=== PATIENT | female | born 1930 | race Caucasian/White ===

== ENCOUNTER 2017-06-15 13:34 | Inpatient (IN) | payer MEDICARE, BC ==
[2017-06-15] MEDS ORDERED: 0.9 % SODIUM CHLORIDE 1000ML 1,000 ML IV ONE (13:51)
[2017-06-15] MEDS ORDERED: ONDANSETRON HCL IV 4 MG/2 ML VIAL IVP ONE (13:51)
--- NOTE | 2017-06-15 13:58 | Emergency Department Record ---
History of Present Illness - General Chief complaint: Weakness Stated complaint: WEAK Time Seen by Provider: 06/15/17 13:50 Source: Patient Mode of Arrival: Ambulatory Limitations: No limitations - History of Present Illness Initial comments: 86 yo female presents not feeling well since the fall. She moved up from [place] in April and waiting for her first appointment with Dr Hargrove. In [place] this fall she developed bowel obstructions that were complicated by atrial fibrillation. Since then she has been weak, fatigued, confusion, episodes of abdominal pain. She is anticoagulated. Today she had an appointment at 2:20pm with Jessica for review of medication needs. She developed abdominal pain. No fever, diarrhea or vomiting. She reports she has not a bowel movement for about one week. No cough, chest pain or shortness of breath. MD Complaint: Generalized weakness -: Week(s) Location: Generalized Severity: Moderate Quality: Aching Consistency: Constant Improves with: None Worsens with: None Associated Symptoms: Confusion, Loss of appetite - Darian Coma Scale Eye Response: (4) Open spontaneously Motor Response: (6) Obeys commands Verbal Response: (5) Oriented Darian Total: 15 - Related Data Home Medications Medication Instructions Recorded Confirmed Last Taken Acetaminophen [Tylenol 325Mg] 650 mg PO Q6H PRN 06/15/17 06/15/17 Unknown Alprazolam [Xanax] 0.25 mg PO BID PRN 06/15/17 06/15/17 Unknown Amlodipine Besylate [Norvasc] 10 mg PO DAILY 06/15/17 06/15/17 Unknown Apixaban [Eliquis] 5 mg PO DAILY 06/15/17 06/15/17 Unknown Furosemide [Lasix] 20 mg PO DAILY 06/15/17 06/15/17 Unknown Hydralazine HCl 50 mg PO BID 06/15/17 06/15/17 Unknown Melatonin 3 mg PO QHS 06/15/17 06/15/17 Unknown Polyethylene Glycol 3350 [Miralax] 17 gm PO DAILY PRN 06/15/17 06/15/17 Unknown Potassium Chloride 10 meq PO DAILY 06/15/17 06/15/17 Unknown Sennosides [Senna] 8.6 mg PO ASDIR 06/15/17 06/15/17 Unknown Allergies Allergy/AdvReac Type Severity Reaction Status Date / Time No Known Drug Allergies Allergy Verified 06/15/17 14:11 Review of Systems Constitutional: Reports: Malaise, Weakness. Denies: Chills, Fever Eyes: Denies: Eye discharge, Eye pain, Photophobia, Vision change ENT: Denies: Congestion, Throat pain Respiratory: Denies: Cough, Dyspnea, Hemoptysis, Stridor, Wheezes Cardiovascular: Denies: Chest pain, Palpitations, Syncope Endocrine: Reports: Fatigue. Denies: Polydipsia, Polyuria Gastrointestinal: Reports: Abdominal pain, Constipation, Nausea. Denies: Diarrhea, Vomiting Genitourinary: Denies: Dysuria Musculoskeletal: Denies: Arthralgia, Back pain, Neck pain Skin: Denies: Bruising, Change in color, Rash Neurological: Reports: Confusion, Headache. Denies: Numbness, Tremors, Vertigo , Weakness Psychiatric: Denies: Anxiety Hematological/Lymphatic: Denies: Blood Clots, Easy bleeding, Easy bruising, Swollen glands Physical Exam - General General Appearance: Alert, Cooperative, No acute distress - Head Head exam: Atraumatic, Normocephalic, Normal inspection - Eye Eye exam: Normal appearance, PERRL. negative: Conjunctival injection, Scleral icterus - ENT ENT exam: Normal exam, Mucous membranes dry Ear exam: Normal external inspection Nasal Exam: Normal inspection Mouth exam: Normal external inspection Teeth exam: Normal inspection Throat exam: Normal inspection. negative: Tonsillar erythema, Tonsillar exudate - Neck Neck exam: Normal inspection, Full ROM. negative: Lymphadenopathy, Tenderness - Respiratory Respiratory exam: Normal lung sounds bilaterally. negative: Respiratory distress - Cardiovascular Cardiovascular Exam: Irregular rhythm, Tachycardia. negative: Regular rate, Normal rhythm Peripheral Pulses: 2+: Radial (R), Radial (L) - GI/Abdominal GI/Abdominal exam: Soft, Diminished bowel sounds, Guarding, Tenderness (soft but diffuse tenderness) - exam: Deferred - Extremities Extremities exam: Normal inspection, Full ROM, Normal capillary refill. negative: Tenderness - Back Back exam: Reports: Normal inspection, Full ROM. Denies: CVA tenderness (R), CVA tenderness (L), Muscle spasm, Rash noted, Tenderness - Neurological Neurological exam: Alert, Normal gait, Oriented X3 - Psychiatric Psychiatric exam: Normal affect, Normal mood - Skin Skin exam: Dry, Intact, Normal color, Warm Course - Reevaluation(s) Reevaluation #1: EKG Atrial Fibrillation with a rate of 115, intervals Qt 471, [place] normal, ST NS diffuse changes, no old. 06/15/17 14:34 06/15/17 14:37 The UA is negative The CBC was reviewed. Hgb is 9.4 06/15/17 15:12 No significant changes on the CMP The INR is 0.99 (The patient is on Eliquis - she has one more dose) HCT and AP CT pending. 06/15/17 15:45 TSH is 2.25 06/15/17 16:26 The HCT was negative for any acute process. 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 06/15/17 16:[address] was read as no acute process, significant stool in the colon, colonic wall thickening with developing steracoral colitis. No free air or intraluminal air. 06/15/17 17:04 I ADAIR Uriostegui of the admission service. I recommend admission for atrial fib, deconditioning, weakness, abdominal pain with constipation Medical Decision Making - Lab Data Result diagrams: 06/15/17 14:00 06/15/17 14:00 Disposition Disposition: Admit Clinical Impression: Fecal impaction, Physical deconditioning Atrial fibrillation Qualifiers: Atrial fibrillation type: unspecified Qualified Code(s): I48.91 - Unspecified atrial fibrillation Abdominal pain Qualifiers: Abdominal location: generalized Qualified Code(s): R10.84 - Generalized abdominal pain Disposition: Still a Patient at [facility] Decision to Admit: Admit from ER Decision to Admit Date: 06/15/17 Decision to Admit Time: 17:06 Time Discussed w/Accepting Physician: 17:06 Condition: (2) Stable Forms: Patient Portal Access Time of Disposition: 17:06 Quality - Quality Measures Quality Measures: N/A - Blood Pressure Screening Does Patient Have Any of the Following: No Blood Pressure Classification: Pre-Hypertensive BP Reading Systolic Measurement: 140 Diastolic Measurement: 84 Screening for High Blood Pressure: < Pre-Hypertensive BP, F/U Documented > [ [id number]] Pre-Hypertensive Follow-up Interventions: Referral to alternative/primary care provider.
[2017-06-15 14:24] LABS: BASO % 0.4 % (0-6); GRAN % 62.7 % (47-80); HEMATOCRIT 30.2 % (35.0-47.0); HEMOGLOBIN 9.4 gm/dl (11.6-16.0); MEAN CELL VOLUME 91.8 fl (81-97); MEAN CORPUSCULAR HGB CONC 31.1 g/dl (32-36); MEAN PLATELET VOLUME 9.4 fl (7.4-10.4); MONO % 13.9 % (0-9); PLATELET COUNT 479 K/uL (130-400); RED BLOOD COUNT 3.29 M/uL (3.80-5.40); WHITE BLOOD COUNT W/O DIFF 8.4 K/uL (4.2-12.2)
[2017-06-15 14:25] LABS: URINE APPEARANCE CLEAR; URINE BILIRUBIN NEGATIVE (NEGATIVE); URINE BLOOD NEGATIVE (NEGATIVE); URINE COLOR YELLOW; URINE GLUCOSE (UA) NEGATIVE (NEGATIVE); URINE KETONE NEGATIVE (NEGATIVE); URINE LEUKOCYTE ESTERASE NEGATIVE (NEGATIVE); URINE NITRITE NEGATIVE (NEGATIVE); URINE PROTEIN NEGATIVE (NEGATIVE); URINE UROBILINOGEN 0.2 E.U./dL (0.20 - 1.00)
[2017-06-15 14:27] LABS: MEAN CORPUSCULAR HEMOGLOBIN 28.5 pg (27-33)
[2017-06-15 14:37] LABS: INR 0.99; PARTIAL THROMBOPLASTIN TIME 26.6 SECONDS (24.5-39.1); PROTHROMBIN TIME (PATIENT) 10.7 SECONDS (9.5-12.1)
[2017-06-15 14:59] LABS: ALB/GLOB RATIO 1.1 (1.1-1.8); ALKALINE PHOSPHATASE 86 U/L (35-104); ALT/SGPT 30 U/L (<33); AST/SGOT 35 U/L (10.0-35.0); BLOOD UREA NITROGEN 16 mg/dL (8-23); CREATININE 0.8 mg/dL (0.5-0.9); EST GLOMERULAR FILTRATION RATE > 60 mL/min; GLUCOSE,RANDOM 105 mg/dL (74-109); TOTAL PROTEIN 7.8 g/dL (6.6-8.7)
[2017-06-15 15:00] LABS: LACTIC ACID 1.2 mmol/L (0.5-2.2)
[2017-06-15 15:28] LABS: THYROID STIMULATING HORMONE 2.25 uIU/mL (0.270-4.20)
[2017-06-15] MEDS ORDERED: BISACODYL 5 MG TABLET PO ONE (18:24)
[2017-06-15] MEDS ORDERED: ALPRAZOLAM 0.25 MG TABLET PO PRN (18:24)
[2017-06-15] MEDS ORDERED: ONDANSETRON HCL IV 4 MG/2 ML VIAL IVP PRN (18:24)
[2017-06-15] MEDS ORDERED: MAGNESIUM CITRATE 296 ML BTL PO ONE (18:24)
[2017-06-15] MEDS: 0.9 % SODIUM CHLORIDE 1000ML 1,000 ML IV PRN (18:53)
[2017-06-15] MEDS ORDERED: FLU VAC QS 2017-18 (INPT, 6MO+) 60MCG/0.5ML IM ONE (19:04)
[2017-06-15] MEDS: HYDRALAZINE HCL 25 MG TABLET PO SCH (21:12)
[2017-06-15] MEDS ORDERED: HYDRALAZINE HCL 50 MG PO SCH (22:00)
[2017-06-15] MEDS ORDERED: METOPROLOL TART 25 MG TABLET PO ONE (22:17)
[2017-06-16] MEDS: 0.9 % SODIUM CHLORIDE 1000ML 1,000 ML IV PRN (04:49)
[2017-06-16 07:26] LABS: BASO % 0.5 % (0-6); GRAN % 71.3 % (47-80); HEMATOCRIT 26.3 % (35.0-47.0); HEMOGLOBIN 8.1 gm/dl (11.6-16.0); LYMPH % 14.6 % (16-45); MEAN CELL VOLUME 93.3 fl (81-97); MEAN CORPUSCULAR HEMOGLOBIN 28.7 pg (27-33); MEAN CORPUSCULAR HGB CONC 30.8 g/dl (32-36); MEAN PLATELET VOLUME 9.3 fl (7.4-10.4); MONO % 10.6 % (0-9); PLATELET COUNT 435 K/uL (130-400); RED BLOOD COUNT 2.82 M/uL (3.80-5.40); RED CELL DISTRIBUTION WIDTH 17.2 % (11.5-14.5); WHITE BLOOD COUNT W/O DIFF 7.6 K/uL (4.2-12.2)
[2017-06-16] MEDS ORDERED: 0.9 % SODIUM CHLORIDE 1000ML 1,000 ML IV PRN (07:29)
[2017-06-16 07:45] LABS: BLOOD UREA NITROGEN 10 mg/dL (8-23); CREATININE 0.7 mg/dL (0.5-0.9); EST GLOMERULAR FILTRATION RATE > 60 mL/min; GLUCOSE,RANDOM 105 mg/dL (74-109)
--- NOTE | 2017-06-16 07:50 | History & Physical ---
History of Present Illness - Date of Service Date of Service for History & Physical: 06/16/17 - History of Present Illness Admitting Diagnosis: weakness, deconditioning, atrial fibrillation with RVR, abdominal pain, dehydration History of Present Illness: 86 yo female admitted for constipation w/ abdominal pain, afib w/ rvr, and generalized weakness. Patient presented to our ER after not feeling well since the fall. She moved up from [place] in April and waiting for her first appointment with Dr Hargrove. Patient has been relatively healthy until this past fall when she developed bowel obstructions that were complicated by atrial fibrillation. Since then she has been weak, fatigued, confused, & experiencing episodes of abdominal pain. Following patient's hospitalization this past fall , she was was placed in a [facility] facility. According to the patient, the last physician she saw was in the VIN unit. She had an appointment at 2:20pm with me in the [facility] to est care and for review of medications. However, she developed abdominal pain and had not had a bowel movement for about one week. Patient's daughter in law, Isabel, then brought her to the ED for further evaluation. While in the ED, patient's VS relatively stable. Hgb 9.4. CMP unremarkable. EKG: Atrial Fibrillation with a rate of 115, intervals Qt 471, [place] normal, ST NS diffuse changes, no old. The UA is negative. The HCT was negative for any acute process. 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 Abd CT: read as no acute process, significant stool in the colon, colonic wall thickening with developing steracoral colitis. No free air or intraluminal air. Patient placed on Tele & IVFs, admitted for further medical management. 06/16/16- Patient lying in bed comfortably. States she's feeling much improved. She's had two large bowel movements since admission. abdominal pain has resolved and patient is now tolerating a soft/full liquid diet well. She states her feet began to swell during the past month, however this has also improved since admission. Patient denies sob, cp, fever, chills, n/v, blood in stool, hematemesis, cough, skin changes, weakness, dizziness, lightheadedness, heart palpitations, or weight loss. Prior to patient's admission for bowel obstruction this past fall, she was not on any medications. She states she lives alone in an apt and completes her ADLs independently. her son lives a few blocks away. PCP: Dr Hargrove- waiting to get in to see him [employer] Tender: none Travel Screening - Travel/Exposure Within Last 30 Days Have you traveled within the last 30 days?: No - Travel/Exposure Within Last Year Have you traveled outside the [place] in the last year?: No - Additonal Travel Details Have you been exposed to anyone with a communicable illness?: No - Travel Symptoms Symptom Screening: None Review of Systems Constitutional: Denies: Chills, Fever, Malaise, Weakness Eyes: Denies: Eye discharge, Eye pain, Photophobia, Vision change ENT: Denies: Congestion, Throat pain Respiratory: Denies: Cough, Dyspnea, Hemoptysis, Stridor, Wheezes Cardiovascular: Denies: Chest pain, Palpitations, Syncope Endocrine: Denies: Fatigue, Polydipsia, Polyuria Gastrointestinal: Denies: Abdominal pain, Constipation, Diarrhea, Melena, Nausea , Vomiting Genitourinary: Denies: Dysuria, Frequency, Hematuria, Incontinence Musculoskeletal: Denies: Arthralgia, Back pain, Neck pain Skin: Denies: Bruising, Change in color, Rash Neurological: Denies: Confusion, Headache, Numbness, Tremors, Vertigo, Weakness Psychiatric: Denies: Anxiety Hematological/Lymphatic: Denies: Blood Clots, Easy bleeding, Easy bruising, Swollen glands Past Medical History - SOCIAL HISTORY Smoking Status: Former smoker Alcohol Use: None Drug Use: None - RESPIRATORY Hx Respiratory Disorders: No - CARDIOVASCULAR Hx Cardio Disorders: Yes Hx Cardiac Cath: Yes Hx Irregular Heartbeat: Yes (afib) - NEURO Hx Neuro Disorders: No - GI Hx GI Disorders: Yes Hx Obstructive Bowel: Yes - Hx Genitourinary Disorders: No - ENDOCRINE Hx Endocrine Disorders: No - MUSCULOSKELETAL Hx Musculoskeletal Disorders: No - PSYCH Hx Psych Problems: Yes Hx Anxiety: Yes Hx Depression: Yes - HEMATOLOGY/ONCOLOGY Hx Hematology/Oncology Disorders: No Family Medical History Any Significant Family History?: No H&P Meds/Allergies - Allergies Allergies: Allergies Allergy/AdvReac Type Severity Reaction Status Date / Time No Known Drug Allergies Allergy Verified 06/15/17 14:11 - Home Medications Home Medications Medication Instructions Recorded Confirmed Last Taken Acetaminophen [Tylenol 325Mg] 650 mg PO Q6H PRN 06/15/17 06/15/17 Unknown Alprazolam [Xanax] 0.25 mg PO BID PRN 06/15/17 06/15/17 Unknown Amlodipine Besylate [Norvasc] 10 mg PO DAILY 06/15/17 06/15/17 Unknown Apixaban [Eliquis] 5 mg PO DAILY 06/15/17 06/15/17 Unknown Furosemide [Lasix] 20 mg PO DAILY 06/15/17 06/15/17 Unknown Hydralazine HCl 50 mg PO BID 06/15/17 06/15/17 Unknown Melatonin 3 mg PO QHS 06/15/17 06/15/17 Unknown Polyethylene Glycol 3350 [Miralax] 17 gm PO DAILY PRN 06/15/17 06/15/17 Unknown Potassium Chloride 10 meq PO DAILY 06/15/17 06/15/17 Unknown Sennosides [Senna] 8.6 mg PO ASDIR 06/15/17 06/15/17 Unknown - Active Medications Active Medications: Current Medications Acetaminophen (Tylenol 325mg) 650 mg PO Q6H PRN PRN Reason: Pain - General Alprazolam (Xanax) 0.25 mg PO BID PRN PRN Reason: ANXIETY Amlodipine Besylate (Norvasc) 10 mg PO DAILY JJ Apixaban (Eliquis) 5 mg PO DAILY JJ Furosemide (Lasix) 20 mg PO DAILY JJ Hydralazine HCl (Apresoline) 50 mg PO BID [facility] Last Admin: 06/15/17 21:12 Dose: 50 mg Sodium Chloride () 1,000 mls @ 25 mls/hr IV .Q24H PRN PRN Reason: LARGE VOLUME IV Ondansetron HCl (Zofran) 4 mg IVP Q4H PRN PRN Reason: NAUSEA Potassium Chloride (Klor-Con) 10 meq PO DAILY [facility] Physical Exam - Vital Signs Vital Signs: Vital Signs - Last 24 Hrs Temp Pulse Pulse Resp BP BP Pulse Ox 06/16/17 06:00 99.1 F 100 H 18 119/54 93 L 06/16/17 02:00 98 F 104 H 18 122/71 95 06/15/17 22:30 116 H 128/63 06/15/17 20:36 112 H 16 06/15/17 20:24 98 F 112 H 16 129/75 94 L 06/15/17 18:36 113 H 12 132/69 94 L 06/15/17 18:20 98.0 F 103 H 18 135/81 97 - General General Appearance: Alert, Cooperative, No acute distress Limitations: No limitations - Head Head exam: Atraumatic, Normocephalic, Normal inspection - Eye Eye exam: Normal appearance, PERRL. negative: Conjunctival injection, Scleral icterus - ENT ENT exam: Normal exam, Mucous membranes dry Ear exam: Normal external inspection Nasal Exam: Normal inspection Mouth exam: Normal external inspection Teeth exam: Normal inspection Throat exam: Normal inspection. negative: Tonsillar erythema, Tonsillar exudate - Neck Neck exam: Normal inspection, Full ROM. negative: Lymphadenopathy, Tenderness - Respiratory Respiratory exam: Normal lung sounds bilaterally. negative: Respiratory distress - Cardiovascular Cardiovascular Exam: Irregular rhythm, Tachycardia. negative: Regular rate, Normal rhythm Peripheral Pulses: 2+: Radial (R), Radial (L) - GI/Abdominal GI/Abdominal exam: Soft, Normal bowel sounds. negative: Diminished bowel sounds , Guarding, Hyperactive bowel sounds, Rebound, Tenderness - Rectal Rectal exam: Deferred - exam: Deferred - Extremities Extremities exam: Normal inspection, Full ROM, Normal capillary refill. negative: Tenderness - Back Back exam: Reports: Normal inspection, Full ROM. Denies: CVA tenderness (R), CVA tenderness (L), Muscle spasm, Rash noted, Tenderness - Neurological Neurological exam: Alert, Normal gait, Oriented X3 - Psychiatric Psychiatric exam: Normal affect, Normal mood - Skin Skin exam: Dry, Intact, Normal color, Warm Results - Labs Result Diagrams: 06/16/17 07:10 06/16/17 07:10 Labs Last 24 Hours: Laboratory Results - last 24 hr 06/16/17 07:10 WBC 7.6 RBC 2.82 L Hgb 8.1 L Hct 26.3 L MCV 93.3 MCH 28.7 MCHC 30.8 L RDW 17.2 H Plt Count 435 H MPV 9.3 Gran % 71.3 Lymphocytes % 14.6 L Monocytes % 10.6 H Eosinophils % 3.0 Basophils % 0.5 VTE H&P Assessment - Risk for VTE Risk for VTE: Yes Risk Level: High Risk Assessment Date: 06/16/17 Risk Assessment Time: 11:00 VTE Orders Placed or Will Be Placed: Yes Plan - Inpatient Certification Inpatient Certification: Admit to inpatient care: Based on my medical assessment, after consideration of patient's risk factors (age, co-morbidities and patient presenting symptoms and acuity), I expect that this patient will remain in the hospital greater than or equal to two midnights and that the services needed warrant inpatient care because: Patient Risk Factors: [generalized weakness, atrial fibrillation, abdominal pain , fatigue] Estimated length of stay: [2-3 nights] The patient may reasonably be expected to be discharged or transferred to a hospital within 96 hours after admission to [facility] [place]. Services needed: [telemetry, therapy services, consults, monitoring of vital signs] Post hospital care (if known): [home, self vs. home health services.] I certify that my determination is in accordance with my understanding of Medicare requirements for reasonable and necessary inpatient services. 06/16/17 22:24 - Detailed Diagnosis and Plan (1) Abdominal pain Current Visit: Yes Status: Acute Qualifiers: Abdominal location: generalized Qualified Code(s): R10.84 - Generalized abdominal pain Base Code: R10.9 - UNSPECIFIED ABDOMINAL PAIN Comment: 06/16- abd CT demonstrated large amount of stool w/in the colon - continue bowel regimen - soft/full liquid diet (2) Atrial fibrillation Current Visit: Yes Status: Acute Qualifiers: Atrial fibrillation type: unspecified Qualified Code(s): I48.91 - Unspecified atrial fibrillation Base Code: I48.91 - UNSPECIFIED ATRIAL FIBRILLATION Comment: 06/16- Afib w/ RVR - continue Tele - norvasc changed to 5 mg qd, will start metoprolol 25 mg BID and d/c hydralazine - 2D ECHO sunday - continue anti coagulation - set up outpatient cardiology consult prior to discharge (3) Fecal impaction Current Visit: Yes Status: Acute Base Code: K56.41 - FECAL IMPACTION Comment: 06/16 - resolved with 150 ml of Mg Citrate - will hold IVF to prevent fluid overload - soft/full liquid diet - monitor GI symptoms closely (4) Physical deconditioning Current Visit: Yes Status: Acute Base Code: R53.81 - OTHER MALAISE Comment : 06/16 - dehydration vs. anemia vs. other? patient feels she's back to baseline. - PT/OT eval prior to dc (5) Full code status Current Visit: Yes Status: Acute Base Code: Z78.9 - OTHER SPECIFIED HEALTH STATUS Comment: 06/16- FULL CODE (6) DVT prophylaxis Current Visit: Yes Status: Acute Base Code: [id number] - Comment: 06/16- continue Eliquis (7) Anemia Current Visit: Yes Status: Acute Base Code: D64.9 - ANEMIA, UNSPECIFIED Comment: 06/16 - hgb 9.4>8.1, MCV normal - no signs of blood loss - continue to monitor closely - transfuse if hgb <7
[2017-06-16] MEDS: POTASSIUM CHLORIDE 10 MEQ TAB PO SCH (09:58)
[2017-06-16] MEDS: AMLODIPINE BESYLATE 5MG TAB PO SCH (09:58)
[2017-06-16] MEDS: HYDRALAZINE HCL 25 MG TABLET PO SCH (09:59)
[2017-06-16] MEDS: FUROSEMIDE 20 MG TABLET PO SCH (09:59)
[2017-06-16] MEDS: APIXABAN 5MG TABLET PO SCH (09:59)
[2017-06-16] MEDS ORDERED: AMLODIPINE BESYLATE 5MG TAB PO SCH (10:00)
[2017-06-16] MEDS ORDERED: Non-Formulary MISC (Amlodipine Besylate [Norvasc] 10 MG) PO SCH (10:00)
--- NOTE | 2017-06-16 10:31 | CT SCAN REPORT ---
EXAM: CT SCAN HEAD WO CONTRAST HISTORY: CONFUSION. BEHAVIORAL CHANGES OVER THE PAST MONTH. WEAKNESS. TECHNIQUE: Standard CT imaging of the brain was performed in the axial plane without contrast. COMPARISON: None. FINDINGS: There is moderate generalized atrophy. The ventricles and cortical sulci are otherwise normal. There is mild CSF prominence within the medial left frontal lobe superiorly along the falx. This may be due to atrophy or an arachnoid cyst. This demonstrates homogeneous CSF density throughout. This area measures approximately 5.1 cm AP, by 1.6 cm transverse, by 3.1 cm in height. There is mild effacement of the adjacent cortex with no midline shift. There is an old infarct involving the inferior lateral right frontal lobe. Extensive chronic small vessel ischemic changes are present within the periventricular and subcortical white matter of both cerebral hemispheres. There are tiny old lacunar infarcts within the basal ganglia bilaterally. There is no intracranial hemorrhage or visible acute infarct. The skull is intact. The orbits, sinuses, and mastoids are normal. IMPRESSION: 1. NO ACUTE INTRACRANIAL ABNORMALITY. 2. MODERATE ATROPHY AND EXTENSIVE CHRONIC SMALL VESSEL ISCHEMIC CHANGES. 3. 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 4. 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 JOB [facility]BER: [id number] [facility]
--- NOTE | 2017-06-16 10:39 | CT SCAN REPORT ---
EXAM: CT SCAN ABDOMEN/PELVIS W CONTRAST HISTORY: ABDOMINAL PAIN. TECHNIQUE: Standard CT imaging of the abdomen and pelvis was performed with oral and intravenous contrast. 100 mL of Omnipaque-300 were administered. COMPARISON: None. FINDINGS: There is mild atelectasis or scarring at the lung bases. Moderate coronary artery calcifications are present. The heart is mildly enlarged. There is a tiny hiatal hernia. There is a tiny hypodensity within the inferior right hepatic lobe, which is too small to characterize but suggestive of a cyst. Mild focal fatty infiltration is present adjacent to the falciform ligament. The gallbladder, biliary tree, pancreas, spleen, and adrenal glands are normal. Atherosclerotic calcifications are present within the aorta. There are irregular atherosclerotic plaques within the infrarenal aorta with no aneurysm or visible dissection. There is no retroperitoneal lymphadenopathy. There is a large amount of stool within the rectum with associated wall thickening and perirectal fat stranding suggesting stercoral colitis. There is no evidence for perforation or abscess. There are scattered diverticula within the sigmoid colon with no evidence for acute diverticulitis. There is moderate stool throughout the remainder of the colon. The small bowel loops are nondistended. The uterus and adnexa appear normal, as does the urinary bladder. There is a tiny hypodensity within the posterior cortex of the left kidney, which is too small to characterize but suggestive of a cyst. The kidneys and ureters are otherwise normal. Multilevel degenerative changes are present within the spine. There are no acute osseous abnormalities. IMPRESSION: 1. A LARGE AMOUNT OF STOOL IS PRESENT WITHIN THE RECTUM CONSISTENT WITH FECAL IMPACTION. THERE IS ASSOCIATED WALL THICKENING AND PERIRECTAL FAT STRANDING SUGGESTING DEVELOPING STERCORAL COLITIS. 2. SIGMOID DIVERTICULOSIS WITH NO EVIDENCE FOR ACUTE DIVERTICULITIS. 3. ADDITIONAL CHRONIC FINDINGS ABOVE. [facility]: [id number] [facility]
[2017-06-16] MEDS: ACETAMINOPHEN 325 MG TAB PO PRN (13:48)
[2017-06-16] MEDS: METOPROLOL SUCC 25 MG TAB.ER PO SCH ×2 (13:52→22:47)
[2017-06-17 07:44] LABS: BASO % 0.4 % (0-6); EOS % 4.2 % (0-6); GRAN % 65.6 % (47-80); HEMATOCRIT 26.6 % (35.0-47.0); HEMOGLOBIN 8.1 gm/dl (11.6-16.0); LYMPH % 16.3 % (16-45); MEAN CELL VOLUME 92.7 fl (81-97); MEAN CORPUSCULAR HEMOGLOBIN 28.2 pg (27-33); MEAN CORPUSCULAR HGB CONC 30.5 g/dl (32-36); MEAN PLATELET VOLUME 9.3 fl (7.4-10.4); MONO % 13.5 % (0-9); PLATELET COUNT 375 K/uL (130-400); RED BLOOD COUNT 2.87 M/uL (3.80-5.40); RED CELL DISTRIBUTION WIDTH 16.7 % (11.5-14.5); WHITE BLOOD COUNT W/O DIFF 6.7 K/uL (4.2-12.2)
[2017-06-17] MEDS: APIXABAN 5MG TABLET PO SCH (09:26)
[2017-06-17] MEDS: METOPROLOL SUCC 25 MG TAB.ER PO SCH ×2 (09:26→22:31)
[2017-06-17] MEDS: FUROSEMIDE 20 MG TABLET PO SCH (09:26)
[2017-06-17] MEDS: ACETAMINOPHEN 325 MG TAB PO PRN (09:26)
[2017-06-17] MEDS: POTASSIUM CHLORIDE 10 MEQ TAB PO SCH (09:26)
[2017-06-17] MEDS: AMLODIPINE BESYLATE 5MG TAB PO SCH (09:28)
--- NOTE | 2017-06-17 19:30 | Physician Progress Note ---
Subjective - Date Date of Physician Progress Note: 06/17/17 - Subjective Subjective Comment: patient lying in bed comfortably. states she's had a few large bowel movements since admission. she's also passing gas and tolerating meals well. denies fever, chills, n/v, abd pain, cough, cp or sob. no blood in stool. LE edema continues to improve. Objective - Vital Signs Vital Signs: Vital Signs - Last 24 Hrs Temp Pulse Pulse Resp BP Pulse Ox 06/17/17 14:00 98.0 F 106 H 16 131/85 97 06/17/17 09:28 98.8 F 86 16 126/58 95 06/17/17 09:00 16 06/17/17 06:00 97.9 F 88 18 136/65 98 06/17/17 02:00 97.7 F 93 H 18 124/70 96 06/16/17 21:00 83 18 06/16/17 20:00 98.6 F 87 18 105/56 96 - General General Appearance: Alert, Cooperative, No acute distress Limitations: No limitations - Head Head exam: Atraumatic, Normocephalic, Normal inspection - Eye Eye exam: Normal appearance, PERRL. negative: Conjunctival injection, Scleral icterus - ENT ENT exam: Normal exam, Mucous membranes dry Ear exam: Normal external inspection Nasal Exam: Normal inspection Mouth exam: Normal external inspection Teeth exam: Normal inspection Throat exam: Normal inspection. negative: Tonsillar erythema, Tonsillar exudate - Neck Neck exam: Normal inspection, Full ROM. negative: Lymphadenopathy, Tenderness - Respiratory Respiratory exam: Normal lung sounds bilaterally. negative: Respiratory distress - Cardiovascular Cardiovascular Exam: Irregular rhythm, Tachycardia. negative: Regular rate, Normal rhythm Peripheral Pulses: 2+: Radial (R), Radial (L) - GI/Abdominal GI/Abdominal exam: Soft, Normal bowel sounds. negative: Diminished bowel sounds , Guarding, Hyperactive bowel sounds, Rebound, Tenderness - Rectal Rectal exam: Deferred - exam: Deferred - Extremities Extremities exam: Normal inspection, Full ROM, Normal capillary refill, Pedal edema (trace, improving). negative: Tenderness - Back Back exam: Reports: Normal inspection, Full ROM. Denies: CVA tenderness (R), CVA tenderness (L), Muscle spasm, Rash noted, Tenderness - Neurological Neurological exam: Alert, Normal gait, Oriented X3 - Psychiatric Psychiatric exam: Normal affect, Normal mood - Skin Skin exam: Dry, Intact, Normal color, Warm Assessment and Plan - Assessment and Plan (1) Abdominal pain Current Visit: Yes Status: Acute Qualifiers: Abdominal location: generalized Qualified Code(s): R10.84 - Generalized abdominal pain Base Code: R10.9 - UNSPECIFIED ABDOMINAL PAIN Comment: 06/17- resolved - abd CT demonstrated large amount of stool w/in the colon - continue bowel regimen - soft/full liquid diet (2) Atrial fibrillation Current Visit: Yes Status: Acute Qualifiers: Atrial fibrillation type: unspecified Qualified Code(s): I48.91 - Unspecified atrial fibrillation Base Code: I48.91 - UNSPECIFIED ATRIAL FIBRILLATION Comment: 06/17- Afib w/ RVR - continue Tele - continue norvasc changed to 5 mg qd, metoprolol 25 mg BID - 2D ECHO sunday - continue anti coagulation - set up outpatient cardiology consult prior to discharge (3) Fecal impaction Current Visit: Yes Status: Acute Base Code: K56.41 - FECAL IMPACTION Comment: 06/17 - resolved with 150 ml of Mg Citrate - multiple large stools and flatulance - will hold IVF to prevent fluid overload - soft/full liquid diet - monitor GI symptoms closely (4) Physical deconditioning Current Visit: Yes Status: Acute Base Code: R53.81 - OTHER MALAISE Comment : 06/17 - dehydration vs. anemia vs. other? patient feels she's back to baseline. - PT/OT eval prior to dc (5) Full code status Current Visit: Yes Status: Acute Base Code: Z78.9 - OTHER SPECIFIED HEALTH STATUS Comment: 06/17- FULL CODE (6) DVT prophylaxis Current Visit: Yes Status: Acute Base Code: [id number] - Comment: 06/17- continue Eliquis (7) Anemia Current Visit: Yes Status: Acute Base Code: D64.9 - ANEMIA, UNSPECIFIED Comment: 06/17- stable - MCV normal - no signs of blood loss - anemia work up initiated - continue to monitor closely - transfuse if hgb <7 Results - Labs Result Diagrams: 06/17/17 07:39 06/16/17 07:10 Labs Last 24 Hours: Laboratory Results - last 24 hr 06/17/17 07:39 WBC 6.7 RBC 2.87 L Hgb 8.1 L Hct 26.6 L MCV 92.7 MCH 28.2 MCHC 30.5 L RDW 16.7 H Plt Count 375 MPV 9.3 Gran % 65.6 Lymphocytes % 16.3 Monocytes % 13.5 H Eosinophils % 4.2 Basophils % 0.4 DVT/PE Assessment - Risk for VTE Risk for VTE: No Risk Level: High Risk Assessment Date: 06/16/17 Risk Assessment Time: 11:00 VTE Orders Placed or Will Be Placed: Yes - Active Medicaitons Current Medications: Current Medications Acetaminophen (Tylenol 325mg) 650 mg PO Q6H PRN PRN Reason: Pain - General Last Admin: 06/17/17 09:26 Dose: 650 mg Alprazolam (Xanax) 0.25 mg PO BID PRN PRN Reason: ANXIETY Amlodipine Besylate (Norvasc) 5 mg PO DAILY [facility] Last Admin: 06/17/17 09:28 Dose: 5 mg Apixaban (Eliquis) 5 mg PO DAILY [facility] Last Admin: 06/17/17 09:26 Dose: 5 mg Furosemide (Lasix) 20 mg PO DAILY [facility] Last Admin: 06/17/17 09:26 Dose: 20 mg Sodium Chloride () 1,000 mls @ 25 mls/hr IV .Q24H PRN PRN Reason: LARGE VOLUME IV Metoprolol Succinate (Toprol Xl) 25 mg PO BID [facility] Last Admin: 06/17/17 09:26 Dose: 25 mg Ondansetron HCl (Zofran) 4 mg IVP Q4H PRN PRN Reason: NAUSEA Potassium Chloride (Klor-Con) 10 meq PO DAILY [facility] Last Admin: 06/17/17 09:26 Dose: 10 meq AMI Plan - Labs Result Diagrams: 06/17/17 07:39 06/16/17 07:10
[2017-06-18 06:55] LABS: BASO % 0.5 % (0-6); EOS % 3.6 % (0-6); HEMATOCRIT 28.8 % (35.0-47.0); HEMOGLOBIN 8.9 gm/dl (11.6-16.0); MEAN CELL VOLUME 91.7 fl (81-97); MEAN CORPUSCULAR HEMOGLOBIN 28.3 pg (27-33); MEAN CORPUSCULAR HGB CONC 30.9 g/dl (32-36); MEAN PLATELET VOLUME 9.5 fl (7.4-10.4); MONO % 12.9 % (0-9); PLATELET COUNT 494 K/uL (130-400); RED BLOOD COUNT 3.14 M/uL (3.80-5.40); RED CELL DISTRIBUTION WIDTH 16.6 % (11.5-14.5); WHITE BLOOD COUNT W/O DIFF 8.6 K/uL (4.2-12.2)
[2017-06-18 07:34] LABS: FERRITIN 45.49 ng/mL (13-150)
[2017-06-18] MEDS: APIXABAN 5MG TABLET PO SCH (10:04)
[2017-06-18] MEDS: FUROSEMIDE 20 MG TABLET PO SCH (10:04)
[2017-06-18] MEDS: AMLODIPINE BESYLATE 5MG TAB PO SCH (10:04)
[2017-06-18] MEDS: POTASSIUM CHLORIDE 10 MEQ TAB PO SCH (10:04)
[2017-06-18] MEDS: METOPROLOL SUCC 25 MG TAB.ER PO SCH (10:04)
--- NOTE | 2017-06-18 10:28 | Rehab Evaluation ---
Patient Information - Patient Information Diagnosis: Weakness, Deconditioning, A-Fib Ordered Treatment: PT Evaluate and Treat Status: Initial Evaluation Surgery: No Past Medical/Surgical Hx: PAST MEDICAL/SURGICAL HISTORY Past Surgical History None PMH - Respiratory Hx Respiratory Disorders No PMH - Cardiovascular Hx Cardiovascular Disorders Yes Hx Cardiac Catheterization Yes Hx Irregular Heartbeat Yes: afib PMH - Neuro Hx Neurological Disorders No PMH - GI Hx Gastrointestinal Disorders Yes Hx Obstructive Bowel Yes PMH - Hx Genitourinary Disorders No PMH - Endocrine Hx Endocrine Disorders No PMH - Musculoskeletal Hx Musculoskeletal Disorders No PMH - Psych Hx Psychiatric Problems Yes Hx Anxiety Yes Hx Depression Yes PMH - Hematology/Oncology Hx Hematology/Oncology No Disorders Social History: Detail (The patient lives in a single level apartment alone. She states that there are no steps to enter the home and she lives on the main floor. She says that she has a tub/shower combo with a shower seat and grab bars in the restroom. She says that she does not use an AD while in the home, but does use a 2WW for walker longer distances in the community. She does most her ADLs on her own, but her daughter comes in once per week to monorail helper with cleaning. She reports no falls previously.) Precautions: None given - Time With Patient Total Time Spent With Patient (Min): 20 Treatment Procedures: Detail (PT Initial Evaluation) Subjective Information - Subjective Information Per Patient (Said that she is anxious to get home, has no complaints of pain, and feels better than she has previously.) Objective Data - Pain Pain Present: No Pain Intensity: 0 Pain Scale Used: Numeric (1 - 10) - Mental Status Patient Orientation: Oriented x3 - ROM Within normal limits - Strength/Tone Not within normal limits (LE Strength Bilaterally - Quads., Hip Flexion, Hip Abd /Adduction - 4/5 Hamstrings, Plantarflexion, Dorsiflexion - 4+/5) - Bed Mobility Independent - Transfers Independent - Balance Balance Sitting: Good Balance Standing: Good (Scored 22/28 on the Tinetti, which placed her in the moderate risk for a fall. The patient scored poorly on the gait portion of the test. See Gait Section for further details) - Sensation Intact - Gait Detail (The patient ambulated with 2 people on each side with a hand hold on each side for 74 ft x 2. The patient showed decreased WB on the L LE, occasional L toe drag during the swing phase. She also had decreased knee flexion during the swing phase. All deviations were occasional in nature, and did not occur with each step.) Therapy Assessment - Therapy Assessment Detail (The patient was independent in her transfer skills and showed adequate functional strength. Her ambulation required a hand hold assist of 2, and deviations that included a slight toe drag on the left LE. The patient would benefit from further therapy at home to increase strength of the LE's and to assess the patient's safety with mobility in the home environment overall. The patient is being discharged from [facility] today (06/18/17).) Problem List - Problem List Physical Therapy Problem List: Detail (1) Decreased LE strength bilaterally 2) Gait deviations that could factor into a fall at home 3) Decreased balance) Goals - Goals Physical Therapy Goals: 1) Decrease frequency of toe drag on the left lower extremity during gait. 2) Increase strength of both lower extremities to prevent further gait abnormalities. 3) Increase Tinetti Score to place the patient in the "Low Risk" for a fall Prognosis - Prognosis Good Plan - Plan Physical Therapy Plan: The patient would benefit from continued therapy in the home to strengthen LEs and correct gait deviations.
--- NOTE | 2017-06-18 10:39 | Rehab Evaluation ---
Patient Information - Patient Information Diagnosis: Weakness, Deconditioning, A-Fib w/RVR, abdominal pain, dehydration Ordered Treatment: OT Evaluate and Treat Status: Initial Evaluation Surgery: No Past Medical/Surgical Hx: PAST MEDICAL/SURGICAL HISTORY Past Surgical History None PMH - Respiratory Hx Respiratory Disorders No PMH - Cardiovascular Hx Cardiovascular Disorders Yes Hx Cardiac Catheterization Yes Hx Irregular Heartbeat Yes: afib PMH - Neuro Hx Neurological Disorders No PMH - GI Hx Gastrointestinal Disorders Yes Hx Obstructive Bowel Yes PMH - Hx Genitourinary Disorders No PMH - Endocrine Hx Endocrine Disorders No PMH - Musculoskeletal Hx Musculoskeletal Disorders No PMH - Psych Hx Psychiatric Problems Yes Hx Anxiety Yes Hx Depression Yes PMH - Hematology/Oncology Hx Hematology/Oncology No Disorders Premorbid Status: Detail (Pt lives alone in a 1st floor apartment, no steps at entrance. She has a tub/shower combination with grab bars and tub seat. She usually ambulates in the house without any assistive device but uses a 2 wheeled walker when in the community. She was Ind with meal prep and laundry, her daughter assists with home mgmt approx. 1 x weekly[address] She [address] not drive.) Social History: Detail (Supportive daughter.) Precautions: [place], Fall - Time With Patient Total Time Spent With Patient (Min): 35 Treatment Procedures: Detail (OT eval low complexity) Subjective Information - Subjective Information Per Patient Objective Data - Pain Pain Present: No - Mental Status Patient Orientation: Oriented x3 - Visual Perception Appears within normal limits for therapeutic activities - ROM Within normal limits (Edy UE AROM WNL) - Strength/Tone Within normal limits (Right UE MMT 4+/5, Left UE strength 4/5.) - Coordination Appears within normal limits for therapeutic activities - Transfers Independent (Ind with sit to stand.) - Balance Balance Sitting: Good Balance Standing: Fair - Sensation Intact - Gait Detail (Pt ambulating in room Indly, amb in hallway with hand held assistance x 2.) - ADL's/IADL's Detail (Pt reports she is Ind with toileting and dressing tasks since admission. ) Therapy Assessment - Therapy Assessment Detail (Pt presents with functional UE strength, Ind with self cares, decreased endurance.) Problem List - Problem List Occupational Therapy Problem List: Detail (1. Decreased endurance needed for high level IADLs.) Goals - Goals Occupational Therapy Goals: 1. Pt will be safe and Ind with all ADLs/IADLs. Prognosis - Prognosis Good Plan - Plan Occupational Therapy Plan: Pt is expected to discharge home today therefore no further IP OT is recommended. Recommend home OT evaluation to assess safety and Ind with self cares and IADLS in the home.
--- NOTE | 2017-06-18 11:36 | Discharge Summary ---
Providers Discharge Summary Date: 06/18/17 Date of admission: 06/15/17 18:17 Expected Date of Discharge: 06/18/17 Attending physician: Parag Zamorano Physical Exam - Vital Signs Vital Signs: Vital Signs - Last 24 Hrs Temp Pulse Pulse Resp BP Pulse Ox 06/18/17 09:00 16 06/18/17 08:00 98.7 F 97 H 16 132/96 06/18/17 04:00 98.4 F 95 H 18 132/73 97 06/17/17 23:49 97.9 F 89 18 140/70 97 06/17/17 21:00 82 16 06/17/17 20:00 97.8 F 81 18 120/69 96 06/17/17 14:00 98.0 F 106 H 16 131/85 97 - General General Appearance: Alert, Cooperative, No acute distress Limitations: No limitations - Head Head exam: Atraumatic, Normocephalic, Normal inspection - Eye Eye exam: Normal appearance, PERRL. negative: Conjunctival injection, Scleral icterus - ENT ENT exam: Normal exam, Mucous membranes dry Ear exam: Normal external inspection Nasal Exam: Normal inspection Mouth exam: Normal external inspection Teeth exam: Normal inspection Throat exam: Normal inspection. negative: Tonsillar erythema, Tonsillar exudate - Neck Neck exam: Normal inspection, Full ROM. negative: Lymphadenopathy, Tenderness - Respiratory Respiratory exam: Normal lung sounds bilaterally. negative: Respiratory distress - Cardiovascular Cardiovascular Exam: Regular rate, Irregular rhythm. negative: Normal rhythm Peripheral Pulses: 2+: Radial (R), Radial (L) - GI/Abdominal GI/Abdominal exam: Soft, Normal bowel sounds. negative: Diminished bowel sounds , Guarding, Hyperactive bowel sounds, Rebound, Tenderness - Rectal Rectal exam: Deferred - exam: Deferred - Extremities Extremities exam: Normal inspection, Full ROM, Normal capillary refill, Pedal edema (trace, improving). negative: Tenderness - Back Back exam: Reports: Normal inspection, Full ROM. Denies: CVA tenderness (R), CVA tenderness (L), Muscle spasm, Rash noted, Tenderness - Neurological Neurological exam: Alert, Normal gait, Oriented X3 - Psychiatric Psychiatric exam: Normal affect, Normal mood - Skin Skin exam: Dry, Intact, Normal color, Warm Hospitalization - Hospitalization Admission Diagnosis: weakness, deconditioning, atrial fibrillation with RVR, abdominal pain, dehydration - Problem List/Discharge Diagnosis (1) Abdominal pain Status: Acute Discharge Diagnosis: Abdominal location: generalized Qualified Code(s): R10.84 - Generalized abdominal pain Base Code: R10.9 - UNSPECIFIED ABDOMINAL PAIN Comment: 06/18 - resolved - abd CT demonstrated large amount of stool w/in the colon - Miralax 17 gm bid and colace 100 mg bid - increase diet as tolerated (2) Atrial fibrillation Status: Acute Discharge Diagnosis: Atrial fibrillation type: unspecified Qualified Code(s): I48.91 - Unspecified atrial fibrillation Base Code: I48.91 - UNSPECIFIED ATRIAL FIBRILLATION Comment: 06/18- Afib w/ RVR - we dc'd norvasc, hydralazine and metoprolol - Dr. Lund prefers to have patient on Cardizem 240 mg daily - I contacted patient's pharmacy and cancelled metoprolol, norvasc scripts and called in Cardizem - continue anti coagulation - 2D ECHO as outpatient has been scheduled. Set patient up w/ holter moniter. - patient evaluated by Dr. Lund who will be seeing patient as outpatient as well. - fup visit with Dr. Hargrove 06/26. requested records from hospital stay in [place]. This will be available during patient's fup visit. (3) Fecal impaction Status: Acute Base Code: K56.41 - FECAL IMPACTION Comment: 06/18 - resolved with 150 ml of Mg Citrate - increase diet as tolerated - home with bowel regimen: miralaz 17 gm bid and colace 100 mg bid (4) Physical deconditioning Status: Acute Base Code: R53.81 - OTHER MALAISE Comment: 06/18 - home PT/OT (5) Full code status Status: Acute Base Code: Z78.9 - OTHER SPECIFIED HEALTH STATUS Comment: 06/18 - PT REMAINED FULL CODE (6) Anemia Status: Acute Base Code: D64.9 - ANEMIA, UNSPECIFIED Comment: 06/18- stable - MCV normal, iron low - no signs of blood loss - will start iron supp, if this worsens bowel function, IV iron supp is recommended. - follow up with PCP re anemia - Hospitalization Course Disposition: Home Health Service Hospital Course: 86 yo female admitted for constipation w/ abdominal pain, afib w/ rvr, and generalized weakness. Patient presented to our ER after not feeling well since the fall. She moved up from [place] in April and waiting for her first appointment with Dr Hargrove. Patient has been relatively healthy until this past fall when she developed bowel obstructions that were complicated by atrial fibrillation. Since then she has been weak, fatigued, confused, & experiencing episodes of abdominal pain. Following patient's hospitalization this past fall , she was was placed in a [facility] facility. According to the patient, the last physician she saw was in the VIN unit. She had an appointment at 2:20pm with me in the [facility] to est care and for review of medications. However, she developed abdominal pain and had not had a bowel movement for about one week. Patient's daughter in law, Isabel, then brought her to the ED for further evaluation. While in the ED, patient's VS relatively stable. Hgb 9.4. CMP unremarkable. EKG: Atrial Fibrillation with a rate of 115, intervals Qt 471, [place] normal, ST NS diffuse changes, no old. The UA is negative. The HCT was negative for any acute process. 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 Abd CT: read as no acute process, significant stool in the colon, colonic wall thickening with developing steracoral colitis. No free air or intraluminal air. Patient placed on Tele & IVFs, admitted for further medical management. 06/16/16- Patient lying in bed comfortably. States she's feeling much improved. She's had two large bowel movements since admission. abdominal pain has resolved and patient is now tolerating a soft/full liquid diet well. She states her feet began to swell during the past month, however this has also improved since admission. Patient denies sob, cp, fever, chills, n/v, blood in stool, hematemesis, cough, skin changes, weakness, dizziness, lightheadedness, heart palpitations, or weight loss. Prior to patient's admission for bowel obstruction this past fall, she was not on any medications. She states she lives alone in an apt and completes her ADLs independently. her son lives a few blocks away. PCP: Dr Hargrove- waiting to get in to see him Secretarial Stenographer: none 06/18/17- patient sitting up in her chair. states she's very ready to get home. she denies any concerns at this time. passing gas. small stool this morning. tolerating meal. lower extremity swelling improving. denies fever, chills, vomiting, blood in stool, heart palpitations, sob, or dizziness. Procedures: Cardiology Procedures 06/16/17 13:32 Echocardiogram 2D - Limited ONCE Abnormal Labs: Abnormal Lab Results 06/16/17 06/17/17 06/18/17 Range/Units 07:10 07:39 06:29 RBC 2.82 L 2.87 L 3.14 L (3.80-5.40) M/uL Hgb 8.1 L 8.1 L 8.9 L (11.6-16.0) gm/dl Hct 26.3 L 26.6 L 28.8 L (35.0-47.0) % MCHC 30.8 L 30.5 L 30.9 L (32-36) g/dl RDW 17.2 H 16.7 H 16.6 H (11.5-14.5) % Plt Count 435 H 494 H (130-400) K/uL Lymphocytes % 14.6 L (16-45) % Monocytes % 10.6 H 13.5 H 12.9 H (0-9) % Iron (37-145) ug/dL TIBC (105-326) ug/dL % Saturation (20-50) % 06/18/17 Range/Units 06:29 RBC (3.80-5.40) M/uL Hgb (11.6-16.0) gm/dl Hct (35.0-47.0) % MCHC (32-36) g/dl RDW (11.5-14.5) % Plt Count (130-400) K/uL Lymphocytes % (16-45) % Monocytes % (0-9) % Iron 32 L (37-145) ug/dL TIBC 339 H (105-326) ug/dL % Saturation 9 L (20-50) % Condition at Discharge: (2) Stable Discharge Medications - Discharge Medications Prescriptions: Docusate Sodium [Colace] 100 mg PO BID #60 cap Ferrous Sulfate 325 mg PO DAILY #30 tablet. Ondansetron [Zofran Odt] 4 mg PO Q8H PRN #4 tab.rapdis PRN Reason: Nausea Home Medications: Ambulatory Orders Acetaminophen [Tylenol 325Mg] 650 mg PO Q6H PRN 06/15/17 [Last Taken Unknown] Apixaban [Eliquis] 5 mg PO DAILY #30 06/18/17 [Last Taken Unknown] Docusate Sodium [Colace] 100 mg PO BID #60 cap 06/18/17 [Last Taken Unknown] Ferrous Sulfate 325 mg PO DAILY #30 tablet. 06/18/17 [Last Taken Unknown] Furosemide [Lasix] 20 mg PO DAILY #30 06/18/17 [Last Taken Unknown] Melatonin 3 mg PO QHS #30 06/18/17 [Last Taken Unknown] Ondansetron [Zofran Odt] 4 mg PO Q8H PRN #4 tab.rapdis 06/18/17 [Last Taken Unknown] Polyethylene Glycol 3350 [Miralax] 17 gm PO BID PRN #60 pack 06/18/17 [Last Taken Unknown] Potassium Chloride 10 meq PO DAILY #30 06/18/17 [Last Taken Unknown] Discharge Plan - Discharge Instructions Activity at Discharge: As Per Physical Therapy, Increase Activity as Tolerated Diet at Discharge: Advance to Usual Diet Instructions: A-fib (Atrial Fibrillation) (DC), Constipation (DC) Additional Instructions: Appointment with Dr. Beena Williamson Jun 26 at 10:00 at [facility]. Get ECHO completed on Jun 26 at 0845 Follow with Secretarial Stenographer (Dr. Lund) as scheduled. continue current medications- these were all refilled and sent to pharmacy. Heart medication: Cardizem 240 mg daily lasix 20 mg daily potassium 10 mEq daily bowel regimen: miralax 17 gm twice daily colace 100 mg twice daily zofran for any nausea iron deficiency/anemia: iron supplementation daily. this may worsen constipation. please be sure to take bowel regimen daily. follow with PCP regarding anemia. home PT/OT to help build physical strength and functioning. return to the hospital with any new or worsening symptoms. Quality Measures - Quality Measures Quality Measures: Atrial Fibrillation & Atrial Flutter: Chronic Anticoagulation Therapy, Advance Directives, Documentation of Current Medications in Medical Record, Elder Maltreatment Screen and Follow-Up Plan, Screening for High Blood Pressure and F/U Documented - Current Medications Quality Measure: Measure #130: Documentation of Current Medications Documentation of Current Medications: <Current Medications Documented/Reviewed> [G2120] - Blood Pressure Screening Quality Measure: Screening for High Blood Pressure and Follow-Up Documented Does Patient Have Any of the Following: No Blood Pressure Classification: Pre-Hypertensive BP Reading Systolic Measurement: 132 Diastolic Measurement: 69 Screening for High Blood Pressure: < Pre-Hypertensive BP, F/U Documented > [ F6350] Pre-Hypertensive Follow-up Interventions: Follow-up with rescreen every year., Lifestyle modifications. Lifestyle Modification: Dietary Approaches to Stop Hypertension (DASH) Eating Plan - Atrial Fibrillation and Atrial Flutter Quality Measure: Atrial Fibrillation & Atrial Flutter: Chronic Anticoagulation Therapy Does Patient Have Any of the Following: No CHADS2 Risk Stratification: Age 75 or Greater Risk Stratification Summary: No risk factors or only one moderate risk factor exists. [G8970] Anticoagulation Therapy: Patient Not Eligible [G8970] - Advance Directives Quality Measure: Measure #47: Care Plan Advance Directives Established: Yes Advance Directives Information Provided To Patient: No Advance Directives on File: No Living Will: Yes Power of Dyslexia Teacher: Yes Power of Dyslexia Teacher Name: Giovanni Baker Advance Care Planning: <Care Plan/Decision Maker Documented; Discussed & Documented> [4903F] - Elder Abuse Suspicion Index Screening: Elder Abuse Suspicion Index Screening Rely on people for bathing, dressing, shopping, banking, etc: No Prevented from getting food, clothes, medication, etc: No Made to feel shamed or threatened by someone: No Forced to sign papers or use money against will: No Feel afraid, touched in ways not wanted or hurt physically: No Poor eye contact, withdrawn, malnourished, cuts or bruises: No Screening Result: Negative result EASI Reference Information: Kaleb ANDRES, Rosalina C, Faina D, Katey Slaughter.Development and validation of a tool to assist physicians identification of elder abuse: The Elder Abuse Suspicion Index (EASI ). Journal of Elder Abuse and Neglect, 2008; 20 (3): 276-300. - Elder Maltreatment Screen Quality Measures: Elder Maltreatment Screen and Follow-Up Plan Elder Maltreatment Screen: <Negative, No Follow-Up Plan Required> [G8723]
[2017-06-18] MEDS ORDERED: ONDANSETRON 4 MG ODT TABLET SL PRN (15:39)
--- NOTE | 2017-06-19 11:40 | Medical Records Consult ---
DATE: 06/18/2017 CHIEF COMPLAINT: The patient is an 86-year-old female recently moved to the area from [place]. She is a terrible historian. She has no recollection if she has ever had atrial fibrillation. She does not know why she is on apixaban and really states that she has really no symptoms of tachy arrhythmia, shortness of breath, chest pain, chest pressure, or any other significant cardiovascular complaint. HISTORY OF PRESENT ILLNESS: She was admitted because of constipation and abdominal pain and noted to have atrial fibrillation with a moderate ventricular response. Since she has been in the hospital, she was able to move her bowels and her symptoms are significantly improved. She is taking a combination for her blood pressure of amlodipine 10 mg, hydralazine 50 mg b.i.d. and the PA under Dr. Hargrove's service added a beta tee. With this, we still have heart rates over 100. Her blood pressure has been relatively easily controlled while in the hospital. REVIEW OF SYSTEMS: General: She denies chills, fever, malaise, weakness. HEENT: She has no symptoms from that arena. She has no congestion or throat pain. Respiratory: She denies cough, dyspnea, orthopnea, PND. Cardiovascular: As stated in Chief Complaint. She has no recollection of anything going on with her heart. GI: She did have abdominal pain upon admission and constipation which was taken care of by the admitting service, Genitourinary: No dysuria, polyuria, or hematuria. She states that she actually feels quite well. SOCIAL HISTORY: She is a former smoker. She does not use alcohol. FAMILY HISTORY: No significant family history to report. PHYSICAL EXAMINATION: GENERAL: An 86-year-old female who appears her age. She was walking in the halls when I interviewed her. She states that she is ready to be discharged from the hospital. CARDIOVASCULAR: Clear heart sounds with irregular irregular rhythm. No murmurs were appreciated. LUNGS: Clear to auscultation. ABDOMEN: Soft at this time and there were no masses. She had no evidence of peripheral edema. IMPRESSION AND PLAN: From a cardiovascular point of view, she does have atrial fibrillation and I think a better rate strategy would be to eliminate the beta tee, the hydralazine, and the amlodipine and place her on Cardizem CD 120 mg a day. This was discussed with the PA. She can be discharged from my point of view. Will have a 24-hour Holter and an echocardiogram and have her come back to the office hopefully with her daughter and we will have some records from [place]. Her most important medication at this point is the apixaban because of her KASHIF vascular score being greater than 2 and the fact that she has atrial fibrillation. I see no reason to consider cardioversion since she is tolerating the atrial fibrillation very well. ALBERT
== END 2017-06-18 17:52 | disposition home health service (06) | DRG 310 ==
LOC: ER 13:34 → MEDSURG 18:17
PROVIDERS: ADMIT Internal Medicine; ATTEND Internal Medicine
DX: I48.91 Unspecified atrial fibrillation (principal); Z79.01 Long term (current) use of anticoagulants; K56.41 Fecal impaction; Z87.891 Personal history of nicotine dependence; E86.0 Dehydration; D64.9 Anemia, unspecified; Z86.73 Personal history of transient ischemic attack (TIA), and cerebral infarction without residual deficits; R10.84 Generalized abdominal pain; R93.0 Abnormal findings on diagnostic imaging of skull and head, not elsewhere classified; F41.8 Other specified anxiety disorders; R53.81 Other malaise
CPT/HCPCS: 83605; 85025; 85730; 85610; 80053; 81003; 84443; 70450; 74177; 93005; 93010; Q9967; J2405; 80048; 82607; 82728; 83550; 93041; 93225; 93226; 96374; 97165; 99223; 99233; 99239; 99285; J7030

== ENCOUNTER 2017-11-30 11:58 | Observation (INO) | payer MEDICARE, BC ==
[2017-11-30 12:50] LABS: URINE APPEARANCE CLEAR; URINE BILIRUBIN NEGATIVE (NEGATIVE); URINE BLOOD TRACE-I (NEGATIVE); URINE COLOR YELLOW; URINE GLUCOSE (UA) NEGATIVE (NEGATIVE); URINE KETONE NEGATIVE (NEGATIVE); URINE LEUKOCYTE ESTERASE NEGATIVE (NEGATIVE); URINE NITRITE NEGATIVE (NEGATIVE); URINE PROTEIN NEGATIVE (NEGATIVE); URINE UROBILINOGEN 0.2 E.U./dL (0.20 - 1.00)
[2017-11-30 12:51] LABS: BASO % 0.4 % (0-6); EOS % 1.3 % (0-6); GRAN % 69.1 % (47-80); HEMOGLOBIN 15.5 gm/dl (11.6-16.0); LYMPH % 18.7 % (16-45); MEAN CELL VOLUME 95.2 fl (81-97); MEAN CORPUSCULAR HEMOGLOBIN 32.1 pg (27-33); MEAN CORPUSCULAR HGB CONC 33.7 g/dl (32-36); MEAN PLATELET VOLUME 9.3 fl (7.4-10.4); MONO % 10.5 % (0-9); PLATELET COUNT 380 K/uL (130-400); RED BLOOD COUNT 4.83 M/uL (3.80-5.40); RED CELL DISTRIBUTION WIDTH 13.8 % (11.5-14.5); WHITE BLOOD COUNT W/O DIFF 9.5 K/uL (4.2-12.2)
[2017-11-30 12:58] LABS: URINE EPITHELIAL CELLS NONE SEEN (FEW); URINE RBC 0 - 2 (NONE SEEN); URINE WBC NONE SEEN (0-2/hpf)
[2017-11-30 12:59] LABS: BLOOD UREA NITROGEN 17 mg/dL (8-23); CREATININE 0.9 mg/dL (0.5-0.9); EST GLOMERULAR FILTRATION RATE > 60 mL/min
[2017-11-30 13:02] LABS: GLUCOSE,RANDOM 111 mg/dL (74-109)
[2017-11-30 13:07] LABS: CKMB 3.4 ng/mL (<3.77)
--- NOTE | 2017-11-30 13:17 | Emergency Department Record ---
History of Present Illness - General Chief Complaint: Dizziness Stated Complaint: DIZZY/HAS FALLEN COUPLE TIMES Time Seen by Provider: 11/30/17 12:20 Source: Patient, Family Mode of Arrival: Wheelchair Limitations: No limitations - History of Present Illness Initial Comments: pt has had vertigo for 3 days.she has actually fallen with it twice and there is possibility of syncope as well. she did hit her head with one of the falls. MD Complaint: Dizziness Onset/Timin -: Days(s) Timing: Unsure Description: Difficulty walking History of Same: Yes Improves With: Nothing Worsens With: Nothing Associated Symptoms: Confusion, Weakness - [place] Coma Scale Eye Response: (4) Open spontaneously Motor Response: (6) Obeys commands Verbal Response: (5) Oriented [place]arian Total: 15 - Symptoms of Stroke Symptoms of stroke: Vertigo - Related Data Allergies Allergy/AdvReac Type Severity Reaction Status Date / Time No Known Drug Allergies Allergy Unverified 06/26/17 10:06 Travel Screening - Travel/Exposure Within Last 30 Days Have you traveled within the last 30 days?: No Review of Systems Reviewed: No additional complaints except as noted below Constitutional: Reports: As per HPI. Denies: Chills, Fever, Malaise, Night sweats, Weakness, Weight change Eyes: Reports: As per HPI. Denies: Eye discharge, Eye pain, Photophobia, Vision change ENT: Reports: As per HPI. Denies: Congestion, Dental pain, Ear pain, Epistaxis , Hearing loss, Throat pain Respiratory: Reports: As per HPI. Denies: Cough, Dyspnea, Hemoptysis, Stridor, Wheezes Cardiovascular: Reports: As per HPI. Denies: Arrhythmia, Chest pain, Dyspnea on exertion, Edema, Murmurs, Orthopnea, Palpitations, Paroxysmal nocturnal dyspnea, Rheumatic Fever, Syncope Endocrine: Reports: As per HPI. Denies: Fatigue, Heat or cold intolerance, Polydipsia, Polyuria Gastrointestinal: Reports: As per HPI. Denies: Abdominal pain, Constipation, Diarrhea, Hematemesis, Hematochezia, Melena, Nausea, Vomiting Genitourinary: Reports: As per HPI. Denies: Abnormal menses, Discharge, Dyspareunia, Dysuria, Frequency, Hematuria, Incontinence, Retention, Urgency Musculoskeletal: Reports: As per HPI. Denies: Arthralgia, Back pain, Gout, Joint swelling, Myalgia, Neck pain Skin: Reports: As per HPI. Denies: Bruising, Change in color, Change in hair/ nails, Lesions, Pruritus, Rash Neurological: Reports: As per HPI. Denies: Abnormal gait, Confusion, Headache, Numbness, Paresthesias, Seizure, Tingling, Tremors, Vertigo, Weakness Psychiatric: Reports: As per HPI. Denies: Anxiety, Auditory hallucinations, Depression, Homicidal thoughts, Suicidal thoughts, Visual hallucinations Hematological/Lymphatic: Reports: As per HPI. Denies: Anemia, Blood Clots, Easy bleeding, Easy bruising, Swollen glands Past Medical History - SOCIAL HISTORY Smoking Status: Former smoker - RESPIRATORY Hx Respiratory Disorders: No - CARDIOVASCULAR Hx Cardio Disorders: Yes Hx Cardiac Cath: Yes Hx Irregular Heartbeat: Yes (afib) - NEURO Hx Neuro Disorders: No - GI Hx GI Disorders: Yes Hx Obstructive Bowel: Yes - Hx Genitourinary Disorders: No - ENDOCRINE Hx Endocrine Disorders: No - MUSCULOSKELETAL Hx Musculoskeletal Disorders: No - PSYCH Hx Psych Problems: Yes Hx Anxiety: Yes Hx Depression: Yes - HEMATOLOGY/ONCOLOGY Hx Hematology/Oncology Disorders: No Family Medical History Any Significant Family History?: No Physical Exam - General General Appearance: Alert, Oriented x3, Cooperative, Mild distress - Head Head exam: Normal inspection - Eye Eye exam: Normal appearance, PERRL, EOMI Pupils: Normal accommodation - ENT ENT exam: Normal exam, Mucous membranes moist, Normal external ear exam, Normal orophraynx Ear exam: Normal external inspection. negative: External canal tenderness Nasal Exam: Normal inspection. negative: Discharge, Sinus tenderness Mouth exam: Normal external inspection, Tongue normal Teeth exam: Normal inspection. negative: Dental caries Throat exam: Normal inspection. negative: Tonsillar erythema, Tonsillar exudate - Neck Neck exam: Normal inspection, Full ROM. negative: Tenderness - Respiratory Respiratory exam: Normal lung sounds bilaterally. negative: Respiratory distress - Cardiovascular Cardiovascular Exam: Regular rate, Normal rhythm, Normal heart sounds - GI/Abdominal GI/Abdominal exam: Soft, Normal bowel sounds. negative: Tenderness - Rectal Rectal exam: Deferred - exam: Deferred - Extremities Extremities exam: Normal inspection, Full ROM, Normal capillary refill. negative: Tenderness - Back Back exam: Reports: Normal inspection, Full ROM. Denies: Muscle spasm, Rash noted, Tenderness - Neurological Neurological exam: Alert, CN II-XII intact, Normal gait, Oriented X3 - Psychiatric Psychiatric exam: Normal affect, Normal mood - Skin Skin exam: Dry, Intact, Normal color, Rash, Warm Distribution of rash: Genitals Course Vital Signs 11/30/17 12:04 Temperature 98.5 F Pulse Rate 104 H Respiratory 18 Rate Blood Pressure 202/108 Pulse Ox 98 - Reevaluation(s) Reevaluation #1: 11/30/17 16:23 pt continues to have difficulty walking though she states she feels a little better.. Medical Decision Making - Lab Data Result diagrams: 11/30/17 12:15 11/30/17 12:15 Lab Results 11/30/17 11/30/17 Range/Units 12:15 12:15 WBC 9.5 (4.2-12.2) K/uL RBC 4.83 (3.80-5.40) M/uL Hgb 15.5 (11.6-16.0) gm/dl Hct 46.0 (35.0-47.0) % MCV 95.2 (81-97) fl MCH 32.1 (27-33) pg MCHC 33.7 (32-36) g/dl RDW 13.8 (11.5-14.5) % Plt Count 380 (130-400) K/uL MPV 9.3 (7.4-10.4) fl Gran % 69.1 (47-80) % Lymphocytes % 18.7 (16-45) % Monocytes % 10.5 H (0-9) % Eosinophils % 1.3 (0-6) % Basophils % 0.4 (0-6) % Urine Color Yellow Urine Appearance Clear Urine pH 7.0 (5.0-8.0) Ur Specific [place] 1.010 (1.002-1.030) Urine Protein Negative (NEGATIVE) Urine Glucose (UA) Negative (NEGATIVE) Urine Ketones Negative (NEGATIVE) Urine Blood Trace-i (NEGATIVE) Urine Nitrite Negative (NEGATIVE) Urine Bilirubin Negative (NEGATIVE) Urine Urobilinogen 0.2 (0.20 - 1.00) E.U./dL Ur Leukocyte Esterase Negative (NEGATIVE) Urine RBC 0 - 2 (NONE SEEN) Urine WBC None seen (0-2/hpf) Ur Epithelial Cells None seen (FEW) Disposition Disposition: Admit Clinical Impression: Vertigo, Difficulty walking, Rash Hypertension Qualifiers: Hypertension type: essential hypertension Qualified Code(s): I10 - Essential ( primary) hypertension Disposition: Still a Patient at [facility] Decision to Admit: Admit from ER Decision to Admit Date: 11/30/17 Decision to Admit Time: 16:25 Forms: Patient Portal Access Quality - Quality Measures Quality Measures: N/A - Blood Pressure Screening Does Patient Have Any of the Following: Active Dx of HTN Blood Pressure Classification: Hypertensive Reading Systolic Measurement: 202 Diastolic Measurement: 108 Screening for High Blood Pressure: Patient Exclusion, Hx of HTN [G9744]
[2017-11-30] MEDS ORDERED: MECLIZINE 25 MG TABLET PO ONE (14:09)
[2017-11-30] MEDS ORDERED: 0.9 % SODIUM CHLORIDE 1,000 ML BAG IV ONE (14:18)
[2017-11-30] MEDS ORDERED: LISINOPRIL 20 MG TABLET PO SCH (17:11)
[2017-11-30] MEDS ORDERED: ASPIRIN 325 MG TABLET PO SCH (17:11)
[2017-11-30] MEDS ORDERED: ACETAMINOPHEN 325 MG TAB PO PRN (17:11)
[2017-11-30] MEDS ORDERED: DILTIAZEM 240 MG CAP CR PO SCH (17:11)
[2017-11-30] MEDS ORDERED: RANITIDINE HCL 150 MG TABLET PO PRN (17:11)
[2017-11-30] MEDS: 0.9 % SODIUM CHLORIDE 1000ML 1,000 ML IV PRN (17:46)
[2017-11-30] MEDS ORDERED: MECLIZINE 25 MG TABLET PO PRN (18:06)
[2017-12-01] MEDS: 0.9 % SODIUM CHLORIDE 1000ML 1,000 ML IV PRN (06:22)
--- NOTE | 2017-12-01 07:13 | History & Physical ---
History of Present Illness - Date of Service Date of Service for History & Physical: 12/01/17 - History of Present Illness Admitting Diagnosis: vertigo, difficulty walking History of Present Illness: Mrs. Pascal is a 87 y/o female with complaint of dizziness and feeling as if the room is spinning around her. She has had three falls over the past three days while ambulating at home and also complains of weakness. The patient denies syncope, blurring of vision, hearing loss, recent infection or headaches. She has a history of hypertension and atrial fibrillation and says that she takes the medication as prescribed. On admission the patient's blood pressure is elevated at 202/108. But the patient says that she didn't take her pills yesterday morning. CT of head was negative for any acute intracranial process. The patient was admitted for further observation and hydration with IV fluids. Overnight the the patient's condition improved and site monitor was negative for acute changes. She is alert, oriented and neurologically intact. The patient uses a walker to ambulate and is doing so albeit very slowly. Travel Screening - Travel/Exposure Within Last 30 Days Have you traveled within the last 30 days?: No - Travel/Exposure Within Last Year Have you traveled outside the [place] in the last year?: No - Additonal Travel Details Have you been exposed to anyone with a communicable illness?: No - Travel Symptoms Symptom Screening: None Review of Systems Constitutional: Reports: As per HPI. Denies: Chills, Fever, Malaise, Night sweats, Weakness, Weight change Eyes: Reports: As per HPI. Denies: Eye discharge, Eye pain, Photophobia, Vision change ENT: Reports: As per HPI. Denies: Congestion, Dental pain, Ear pain, Epistaxis , Hearing loss, Throat pain Respiratory: Reports: As per HPI. Denies: Cough, Dyspnea, Hemoptysis, Stridor, Wheezes Cardiovascular: Reports: As per HPI. Denies: Arrhythmia, Chest pain, Dyspnea on exertion, Edema, Murmurs, Orthopnea, Palpitations, Paroxysmal nocturnal dyspnea, Rheumatic Fever, Syncope Endocrine: Reports: As per HPI. Denies: Fatigue, Heat or cold intolerance, Polydipsia, Polyuria Gastrointestinal: Reports: As per HPI. Denies: Abdominal pain, Constipation, Diarrhea, Hematemesis, Hematochezia, Melena, Nausea, Vomiting Genitourinary: Reports: As per HPI. Denies: Abnormal menses, Discharge, Dyspareunia, Dysuria, Frequency, Hematuria, Incontinence, Retention, Urgency Musculoskeletal: Reports: As per HPI. Denies: Arthralgia, Back pain, Gout, Joint swelling, Myalgia, Neck pain Skin: Reports: As per HPI. Denies: Bruising, Change in color, Change in hair/ nails, Lesions, Pruritus, Rash Neurological: Reports: As per HPI. Denies: Abnormal gait, Confusion, Headache, Numbness, Paresthesias, Seizure, Tingling, Tremors, Vertigo, Weakness Psychiatric: Reports: As per HPI. Denies: Anxiety, Auditory hallucinations, Depression, Homicidal thoughts, Suicidal thoughts, Visual hallucinations Hematological/Lymphatic: Reports: As per HPI. Denies: Anemia, Blood Clots, Easy bleeding, Easy bruising, Swollen glands Past Medical History - SOCIAL HISTORY Smoking Status: Former smoker Alcohol Use: None Drug Use: None - RESPIRATORY Hx Respiratory Disorders: No - CARDIOVASCULAR Hx Cardio Disorders: Yes Hx Cardiac Cath: Yes Hx Irregular Heartbeat: Yes (afib) - NEURO Hx Neuro Disorders: No - GI Hx GI Disorders: Yes Hx Obstructive Bowel: Yes - Hx Genitourinary Disorders: No - ENDOCRINE Hx Endocrine Disorders: No - MUSCULOSKELETAL Hx Musculoskeletal Disorders: No - PSYCH Hx Psych Problems: Yes Hx Anxiety: Yes Hx Depression: Yes - HEMATOLOGY/ONCOLOGY Hx Hematology/Oncology Disorders: No Family Medical History Any Significant Family History?: No H&P Meds/Allergies - Allergies Allergies: Allergies Allergy/AdvReac Type Severity Reaction Status Date / Time No Known Drug Allergies Allergy Unverified 06/26/17 10:06 - Active Medications Active Medications: Current Medications Acetaminophen (Tylenol 325mg) 650 mg PO Q6H PRN PRN Reason: PAIN - MILD(1-4)/FEVER Apixaban (Eliquis) 5 mg PO DAILY [facility] Aspirin (Aspirin, Regular) 325 mg PO QD [facility] Last Admin: 11/30/17 17:46 Dose: 325 mg Diltiazem HCl (Cardizem Cd) 240 mg PO QD [facility] Last Admin: 11/30/17 17:46 Dose: 240 mg Ferrous Sulfate (Iron) 325 mg PO DAILY [facility] Sodium Chloride () 1,000 mls @ 75 mls/hr IV .[id number] PRN PRN Reason: LARGE VOLUME IV Last Admin: 12/01/17 06:22 Dose: 75 mls/hr Lisinopril (Zestril) 40 mg PO QD JJ Last Admin: 11/30/17 17:45 Dose: 40 mg Meclizine HCl (Antivert) 12.5 mg PO Q6H PRN PRN Reason: DIZZINESS Potassium Chloride (Klor-Con) 10 meq PO DAILY JJ Ranitidine HCl (Zantac) 150 mg PO QD PRN PRN Reason: HEARTBURN Physical Exam - Vital Signs Vital Signs: Vital Signs - Last 24 Hrs Temp Pulse Pulse Pulse Resp BP BP 12/01/17 04:00 98.0 F 68 20 141/81 11/30/17 23:29 98.4 F 78 20 141/88 11/30/17 20:13 81 18 11/30/17 20:00 98.6 F 93 H 20 156/89 11/30/17 18:30 114 H 18 168/114 11/30/17 18:10 98.7 F 109 H 18 179/110 11/30/17 17:35 102 H 20 11/30/17 16:46 88 20 123/120 11/30/17 13:46 102 H 16 177/107 11/30/17 12:04 98.5 F 104 H 18 202/108 Pulse Ox 12/01/17 04:00 95 11/30/17 23:29 95 11/30/17 20:13 11/30/17 20:00 95 11/30/17 18:30 11/30/17 18:10 96 11/30/17 17:35 11/30/17 16:46 11/30/17 13:46 97 11/30/17 12:04 98 - General General Appearance: Alert, Oriented x3, Cooperative, Mild distress Limitations: No limitations - Head Head exam: Normal inspection - Eye Eye exam: Normal appearance, PERRL, EOMI Pupils: Normal accommodation - ENT ENT exam: Normal exam, Mucous membranes moist, Normal external ear exam, Normal orophraynx Ear exam: Normal external inspection. negative: External canal tenderness Nasal Exam: Normal inspection. negative: Discharge, Sinus tenderness Mouth exam: Normal external inspection, Tongue normal Teeth exam: Normal inspection. negative: Dental caries Throat exam: Normal inspection. negative: Tonsillar erythema, Tonsillar exudate - Neck Neck exam: Normal inspection, Full ROM. negative: Tenderness - Respiratory Respiratory exam: Normal lung sounds bilaterally. negative: Respiratory distress - Cardiovascular Cardiovascular Exam: Regular rate, Normal rhythm, Normal heart sounds Peripheral Pulses: 3+: Radial (R), Radial (L), Dorsalis Pedis (R), Dorsalis Pedis (L) - GI/Abdominal GI/Abdominal exam: Soft, Normal bowel sounds. negative: Tenderness - Rectal Rectal exam: Deferred - exam: Deferred - Extremities Extremities exam: Normal inspection, Full ROM, Normal capillary refill. negative: Tenderness - Back Back exam: Reports: Normal inspection, Full ROM. Denies: Muscle spasm, Rash noted, Tenderness - Neurological Neurological exam: Alert, CN II-XII intact, Oriented X3. negative: Normal gait (gait disturbance ) - Psychiatric Psychiatric exam: Normal affect, Normal mood - Skin Skin exam: Dry, Intact, Normal color, Rash, Warm Distribution of rash: Genitals Results - Labs Result Diagrams: 11/30/17 12:15 11/30/17 12:15 Labs Last 24 Hours: Laboratory Results - last 24 hr 11/30/17 11/30/17 11/30/17 12:15 12:15 12:15 WBC 9.5 RBC 4.83 Hgb 15.5 Hct 46.0 MCV 95.2 MCH 32.1 MCHC 33.7 RDW 13.8 Plt Count 380 MPV 9.3 Gran % 69.1 Lymphocytes % 18.7 Monocytes % 10.5 H Eosinophils % 1.3 Basophils % 0.4 Sodium 140 Potassium 3.7 Chloride 96 L Carbon Dioxide 29.0 Anion Gap 15.0 BUN 17 Creatinine 0.9 Estimated GFR > 60 Random Glucose 111 H Calcium 9.7 CK-MB (CK-2) 3.4 Urine Color Yellow Urine Appearance Clear Urine pH 7.0 Ur Specific [place] 1.010 Urine Protein Negative Urine Glucose (UA) Negative Urine Ketones Negative Urine Blood Trace-i Urine Nitrite Negative Urine Bilirubin Negative Urine Urobilinogen 0.2 Ur Leukocyte Esterase Negative Urine RBC 0 - 2 Urine WBC None seen Ur Epithelial Cells None seen VTE H&P Assessment - Risk for VTE Risk for VTE: Yes Risk Level: High Risk Assessment Date: 12/01/17 Risk Assessment Time: 07:29 VTE Orders Placed or Will Be Placed: Yes Plan - Detailed Diagnosis and Plan (1) Vertigo Current Visit: Yes Status: Acute Base Code: R42 - DIZZINESS AND GIDDINESS Comment: - 12/01/17: - patient complains of dizziness and feeling as if the room is spinning and has had several falls over the past few days. No nystagmus, + hearing loss. - orthostatics: normal - EKG: atrial fibrillation w/ vent rate approx 100 bmp - [address] head w/o contrast: negative for acute intracranial process. - IVF fluids @ 75mL/hr, antivert 12.5mg Q6H PRN, resume Cardizem 240mg daily and Lisinopril 40mg, hold Lasix. Continuous cardiac monitoring. - Fall precuations w/ bed alarm (2) Physical deconditioning Current Visit: No Status: Acute Base Code: R53.81 - OTHER MALAISE Comment : 12/01/17: - ambulation with assistance. - Fall precuations. - PT/OT evaluation at discharge. (3) Hypertension Current Visit: Yes Status: Acute Qualifiers: Hypertension type: essential hypertension Qualified Code(s): I10 - Essential (primary) hypertension Base Code: I10 - ESSENTIAL (PRIMARY) HYPERTENSION Comment: 12/01/17: - BP stable 141/81. - on Lisinopril 40mg, Cardizem 240mg with holding paramteters for systolic <120 , HR <55 (4) Atrial fibrillation Current Visit: No Status: Acute Base Code: I48.91 - UNSPECIFIED ATRIAL FIBRILLATION Comment: 12/01/17: - ECG: a fib, no acute changes. - on Cardizem 240mg daily anticoagualated on Eliquis. - consider d/c anticogualtion due to frequency of falls. (5) Vaginal irritation Current Visit: Yes Status: Acute Base Code: N89.8 - OTHER SPECIFIED NONINFLAMMATORY DISORDERS OF VAGINA Comment: 12/01/17: - vaginal irritation for 1 month. - plevic exam: white flaky non-removable rash of the labia. There appears to maceration of the skin with extension to perineum. - diflucan 100mg daily x 7 days. Nystatin topical ointment to apply to the area. (6) DVT prophylaxis Current Visit: Yes Status: Acute Base Code: [id number] - Comment: 12/01/17: - Lovenox 40mg daily. (7) Full code status Current Visit: No Status: Acute Base Code: Z78.9 - OTHER SPECIFIED HEALTH STATUS Comment: 12/01/17: - FULL CODE - Disposition The patient is doing much better this morning. I had a lengthy discussion with her daughter in law Isabel ([phone]) who says that the patient had home PT setup up previously but she refuses to participate. She also notes that she has difficulty sorting out her medications aand sometimes takes the incorrect dose. They have already sought help in this regard and the patient is awaiting placement in an adult assisted facility in [place]. I discussed in detail her plan of care here and my concerns about her Eliquis use considering the falls she has had. They are in agreement that she will need closer care while at home until she can be placed and they are willing to take the patient home and be with her on a more consistent basis.
[2017-12-01] MEDS ORDERED: APIXABAN 5MG TABLET PO SCH (10:00)
[2017-12-01] MEDS ORDERED: POTASSIUM CHLORIDE 10 MEQ TAB PO SCH (10:00)
[2017-12-01] MEDS ORDERED: FERROUS SULFATE 325 MG TAB PO SCH (10:00)
[2017-12-01] MEDS ORDERED: FUROSEMIDE 20 MG TABLET PO SCH (10:00)
--- NOTE | 2017-12-01 10:35 | CT SCAN REPORT ---
DATE: 10/31/2017. EXAM: CT OF THE BRAIN WITHOUT CONTRAST. HISTORY: Dizziness. TECHNIQUE: Sequential axial images were obtained from the foramen magna to the vertex without contrast administration. FINDINGS: Age-appropriate cortical atrophy. There is periventricular small- vessel ischemic change. No large territorial infarct, hemorrhage, or mass effect. No midline shift. No extra-axial fluid collection. The orbits, paranasal sinuses, and mastoid air cells appear normal. IMPRESSION: 1. 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 2. NO ACUTE INTRACRANIAL ABNORMALITY. JOB NUMBER: [id number] [facility]
[2017-12-01] MEDS ORDERED: FLUCONAZOLE 100 MG TABLET PO SCH (12:15)
[2017-12-01] MEDS ORDERED: NYSTATIN 15 GM POWDER TP SCH (12:15)
--- NOTE | 2017-12-01 12:19 | Discharge Summary ---
Providers Discharge Summary Date: 12/01/17 Date of admission: 11/30/17 16:52 Attending physician: FISH HARGROVE Primary care physician: FISH HARGROVE Physical Exam - Vital Signs Vital Signs: Vital Signs - Last 24 Hrs Temp Pulse Pulse Pulse Resp BP BP 12/01/17 08:00 98.0 F 77 18 136/74 12/01/17 07:55 68 20 12/01/17 04:00 98.0 F 68 20 141/81 11/30/17 23:29 98.4 F 78 20 141/88 11/30/17 20:13 81 18 11/30/17 20:00 98.6 F 93 H 20 156/89 11/30/17 18:30 114 H 18 168/114 11/30/17 18:10 98.7 F 109 H 18 179/110 11/30/17 17:35 102 H 20 11/30/17 16:46 88 20 123/120 11/30/17 13:46 102 H 16 177/107 Pulse Ox 12/01/17 08:00 96 12/01/17 07:55 12/01/17 04:00 95 11/30/17 23:29 95 11/30/17 20:13 11/30/17 20:00 95 11/30/17 18:30 11/30/17 18:10 96 11/30/17 17:35 11/30/17 16:46 11/30/17 13:46 97 - General General Appearance: Alert, Oriented x3, Cooperative, Mild distress Limitations: No limitations - Head Head exam: Normal inspection - Eye Eye exam: Normal appearance, PERRL, EOMI Pupils: Normal accommodation - ENT ENT exam: Normal exam, Mucous membranes moist, Normal external ear exam, Normal orophraynx Ear exam: Normal external inspection. negative: External canal tenderness Nasal Exam: Normal inspection. negative: Discharge, Sinus tenderness Mouth exam: Normal external inspection, Tongue normal Teeth exam: Normal inspection. negative: Dental caries Throat exam: Normal inspection. negative: Tonsillar erythema, Tonsillar exudate - Neck Neck exam: Normal inspection, Full ROM. negative: Tenderness - Respiratory Respiratory exam: Normal lung sounds bilaterally. negative: Respiratory distress - Cardiovascular Cardiovascular Exam: Regular rate, Normal rhythm, Normal heart sounds Peripheral Pulses: 3+: Radial (R), Radial (L), Dorsalis Pedis (R), Dorsalis Pedis (L) - GI/Abdominal GI/Abdominal exam: Soft, Normal bowel sounds. negative: Tenderness - Rectal Rectal exam: Deferred - exam: Deferred - Extremities Extremities exam: Normal inspection, Full ROM, Normal capillary refill. negative: Tenderness - Back Back exam: Reports: Normal inspection, Full ROM. Denies: Muscle spasm, Rash noted, Tenderness - Neurological Neurological exam: Alert, CN II-XII intact, Oriented X3. negative: Normal gait (gait disturbance ) - Psychiatric Psychiatric exam: Normal affect, Normal mood - Skin Skin exam: Dry, Intact, Normal color, Rash, Warm Distribution of rash: Genitals Hospitalization - Hospitalization Admission Diagnosis: vertigo, difficulty walking - Problem List/Discharge Diagnosis (1) Vertigo Current Visit: Yes Status: Acute Base Code: R42 - DIZZINESS AND GIDDINESS Comment: - 12/01/17: - patient complains of dizziness and feeling as if the room is spinning and has had several falls over the past few days. No nystagmus, + hearing loss. - orthostatics: normal - EKG: atrial fibrillation w/ vent rate approx [address] head w/o contrast: negative for acute intracranial process. - IVF fluids @ 75mL/hr, antivert 12.5mg Q6H PRN, resume Cardizem 240mg daily and Lisinopril 40mg, hold Lasix. Continuous cardiac monitoring. - Fall precuations w/ bed alarm (2) Physical deconditioning Current Visit: No Status: Acute Base Code: R53.81 - OTHER MALAISE Comment : 12/01/17: - ambulation with assistance. - Fall precuations. - PT/OT evaluation at discharge. (3) Hypertension Current Visit: Yes Status: Acute Discharge Diagnosis: Hypertension type: essential hypertension Qualified Code(s): I10 - Essential (primary) hypertension Base Code: I10 - ESSENTIAL (PRIMARY) HYPERTENSION Comment: 12/01/17: - BP stable 141/81. - on Lisinopril 40mg, Cardizem 240mg with holding paramteters for systolic <120 , HR <55 (4) Atrial fibrillation Current Visit: No Status: Acute Base Code: I48.91 - UNSPECIFIED ATRIAL FIBRILLATION Comment: 12/01/17: - ECG: a fib, no acute changes. - on Cardizem 240mg daily anticoagualated on Eliquis. - consider d/c anticogualtion due to frequency of falls. (5) Vaginal irritation Current Visit: Yes Status: Acute Base Code: N89.8 - OTHER SPECIFIED NONINFLAMMATORY DISORDERS OF VAGINA Comment: 12/01/17: - vaginal irritation for 1 month. - plevic exam: white flaky non-removable rash of the labia. There appears to maceration of the skin with extension to perineum. - diflucan 100mg daily x 7 days. Nystatin topical ointment to apply to the area. (6) DVT prophylaxis Current Visit: Yes Status: Acute Base Code: [id number] - Comment: 12/01/17: - Lovenox 40mg daily. (7) Full code status Current Visit: No Status: Acute Base Code: Z78.9 - OTHER SPECIFIED HEALTH STATUS Comment: 12/01/17: - FULL CODE - Disposition The patient is doing much better this morning. I had a lengthy discussion with her daughter in law Isabel ([phone]) who says that the patient had home PT setup up previously but she refuses to participate. She also notes that she has difficulty sorting out her medications aand sometimes takes the incorrect dose. They have already sought help in this regard and the patient is awaiting placement in an adult assisted facility in [place]. I discussed in detail her plan of care here and my concerns about her Eliquis use considering the falls she has had. They are in agreement that she will need closer care while at home until she can be placed and they are willing to take the patient home and be with her on a more consistent basis. - Hospitalization Course Hospital Course: Mrs. Pascal is a 87 y/o female with complaint of dizziness and feeling as if the room is spinning around her. She has had three falls over the past three days while ambulating at home and also complains of weakness. The patient denies syncope, blurring of vision, hearing loss, recent infection or headaches. She has a history of hypertension and atrial fibrillation and says that she takes the medication as prescribed. On admission the patient's blood pressure is elevated at 202/108. But the patient says that she didn't take her pills yesterday morning. CT of head was negative for any acute intracranial process. The patient was admitted for further observation and hydration with IV fluids. Overnight the the patient's condition improved and hospital monitor was negative for acute changes. She is alert, oriented and neurologically intact. The patient uses a walker to ambulate and is doing so albeit very slowly. 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 .Continuous Abnormal Labs: Abnormal Lab Results 11/30/17 11/30/17 Range/Units 12:15 12:15 Monocytes % 10.5 H (0-9) % Chloride 96 L (98-107) mmol/L Random Glucose 111 H (74-109) mg/dL Discharge Medications - Discharge Medications Prescriptions: Fluconazole [Diflucan] 100 mg PO DAILY 9 Days #9 tablet Meclizine HCl [Antivert] 12.5 mg PO Q6H PRN #10 tablet PRN Reason: Dizziness Nystatin [Nystop] 15 gm TP BID PRN #1 powder PRN Reason: Rash Home Medications: Ambulatory Orders Aspirin 325 mg PO QD tab 06/26/17 [Last Taken Unknown] Aspirin/Acetaminophen/Caffeine [Excedrin Extra Strength Caplet] 1 each PO QD PRN tab 06/26/17 [Last Taken Unknown] Ranitidine HCl [Zantac] 150 mg PO QD PRN tab 06/26/17 [Last Taken Unknown] Fluconazole [Diflucan] 100 mg PO DAILY 9 Days #9 tablet 12/01/17 [Last Taken Unknown] Meclizine HCl [Antivert] 12.5 mg PO Q6H PRN #10 tablet 12/01/17 [Last Taken Unknown] Nystatin [Nystop] 15 gm TP BID PRN #1 powder 12/01/17 [Last Taken Unknown] Discharge Plan - Discharge Instructions Activity at Discharge: Resume Usual Activities As Tolerated Diet at Discharge: Regular Diet Additional Instructions: Continue to take these medications when you get home: Nystatin powder to vaginal area twice daily. Diflucan 100mg daily x 10 days. Antivert 12.5mg daily when needed for dizziness. Follow up with Dr. Hargrove in the office this week. Do not take Lasix when you get home. If any acute concerns please return the ED. Quality Measures - Quality Measures Quality Measures: Atrial Fibrillation & Atrial Flutter: Chronic Anticoagulation Therapy, Advance Directives, Documentation of Current Medications in Medical Record, Elder Maltreatment Screen and Follow-Up Plan, Screening for High Blood Pressure and F/U Documented - Current Medications Quality Measure: Measure #130: Documentation of Current Medications Documentation of Current Medications: <Current Medications Documented/Reviewed> [[id number]] - Blood Pressure Screening Quality Measure: Screening for High Blood Pressure and Follow-Up Documented Does Patient Have Any of the Following: Active Dx of HTN Blood Pressure Classification: Hypertensive Reading Systolic Measurement: 123 Diastolic Measurement: 120 Screening for High Blood Pressure: Patient Exclusion, Hx of HTN [G9744] - Atrial Fibrillation and Atrial Flutter Quality Measure: Atrial Fibrillation & Atrial Flutter: Chronic Anticoagulation Therapy Does Patient Have Any of the Following: No CHADS2 Risk Stratification: Age 75 or Greater Risk Stratification Summary: No risk factors or only one moderate risk factor exists. [G8970] Anticoagulation Therapy: <Oral anticoagulant Prescribed> [G8967] - Advance Directives Quality Measure: Measure #47: Care Plan Advance Directives Established: Yes Advance Directives Information Provided To Patient: No Advance Directives on File: No Living Will: Yes Power of Seismograph Shooter: Yes Power of Seismograph Shooter Name: Giovanni Baker Advance Care Planning: <Care Plan/Decision Maker Documented; Discussed & Documented> [2823F] - Elder Abuse Suspicion Index Screening: Elder Abuse Suspicion Index Screening Rely on people for bathing, dressing, shopping, banking, etc: No Prevented from getting food, clothes, medication, etc: No Made to feel shamed or threatened by someone: No Forced to sign papers or use money against will: No Feel afraid, touched in ways not wanted or hurt physically: No Poor eye contact, withdrawn, malnourished, cuts or bruises: No Screening Result: Negative result EASI Reference Information: Kaleb ADNRES, Rosalina C, Faina D, Katey M.Development and validation of a tool to assist physicians identification of elder abuse: The Elder Abuse Suspicion Index (EASI ). Journal of Elder Abuse and Neglect, 2008; 20 (3): 276-300. - Elder Maltreatment Screen Quality Measures: Elder Maltreatment Screen and Follow-Up Plan Elder Maltreatment Screen: <Negative, No Follow-Up Plan Required> [G8705]
[2017-12-01] MEDS ORDERED: NYSTATIN 15 GM TUBE TOP ONE (12:33)
== END 2017-12-01 15:00 | disposition home or self-care (01) ==
LOC: ER 11:58 → MEDSURG 16:52
PROVIDERS: ADMIT Internal Medicine; ATTEND Internal Medicine
DX: R42 Dizziness and giddiness (principal); R26.2 Difficulty in walking, not elsewhere classified; R53.81 Other malaise; I48.91 Unspecified atrial fibrillation; Z79.01 Long term (current) use of anticoagulants; I10 Essential (primary) hypertension; N89.8 Other specified noninflammatory disorders of vagina; R21 Rash and other nonspecific skin eruption; Z98.61 Coronary angioplasty status; R29.6 Repeated falls
CPT/HCPCS: 85025; 82553; 80048; 81001; 70450; 93005; 93010; G0378 ×2; J3490; 99220; 99285; J7030